=== PATIENT | female | born 1995 | race Caucasian/White ===

== ENCOUNTER 2018-11-26 17:31 | Outpatient (CLI) | payer BC ==
[~2018-11-26] VITALS: Ht 167.6 cm; Wt 89.4 kg
[~2018-11-26 17:31] MED LIST: PNV11TAB PO
[2018-11-26 17:58] VITALS: BP 115/57; PULSE 98; RESP 18; Ht 167.6 cm; Wt 89.4 kg
== END 2018-11-26 20:41 | disposition home or self-care (01) ==
LOC: OBT 17:31 → L-D 17:32 → OBT 20:41
PROVIDERS: ATTEND Obstetrics & Gynecology
DX: O36.8130 Decreased fetal movements, third trimester, not applicable or unspecified (principal); Z3A.37 37 weeks gestation of pregnancy
CPT/HCPCS: 76815; 76818; Z7500; G0463

== ENCOUNTER 2018-12-04 23:00 | Inpatient (IN) | payer BC ==
[~2018-12-04] VITALS: Ht 167.6 cm; Wt 89.4 kg
[2018-12-04 23:06] VITALS: Ht 167.6 cm; Wt 89.4 kg
[2018-12-04] MEDS: LACTATED RINGER'S 1,000 ML IV SCH (23:48)
[2018-12-05] MEDS ORDERED: DIPHENHYDRAMINE 50 MG INJ IV ONE
[2018-12-05] MEDS ORDERED: CEFAZOLIN 2 GM/50 ML (PMX) 50 ML IVPB SCH
[2018-12-05 00:36] VITALS: BP 126/75; PULSE 71; RESP 18
[2018-12-05] MEDS: LACTATED RINGER'S 1,000 ML IV SCH ×2 (00:45→06:47)
[2018-12-05] MEDS ORDERED: morphine SULFATE/PF (10 MG/10 ML) INJ ONE (10:32)
[2018-12-05] MEDS ORDERED: METOCLOPRAMIDE 10 MG INJ ONE (10:42)
[2018-12-05] MEDS ORDERED: ONDANSETRON 4 MG INJ ONE (10:42)
[2018-12-05] MEDS ORDERED: EPHEDrine 25 MG/5 ML SYG ONE (10:46)
[2018-12-05] MEDS ORDERED: PHENYLephrine 10 MG INJ ONE (10:46)
[2018-12-05] MEDS ORDERED: MIDAZOLAM 1 MG/ML 2 ML INJ ONE (11:05)
[2018-12-05] MEDS ORDERED: OXYTOCIN 10 UNIT INJ ONE (11:08)
[2018-12-05] MEDS ORDERED: LACTATED RINGER'S 1,000 ML IV ONE (11:20)
[2018-12-05] MEDS ORDERED: DIPHENHYDRAMINE 50 MG INJ IV PRN ×2 (11:30)
[2018-12-05] MEDS ORDERED: ZOLPIDEM 5 MG TAB PO PRN (11:30)
[2018-12-05] MEDS ORDERED: NALOXONE (0.4 MG/ML) INJ IV PRN (11:30)
[2018-12-05] MEDS ORDERED: HYDROmorphONE 0.5 MG/0.5 ML SYG IV PRN ×2 (11:30)
[2018-12-05] MEDS ORDERED: ONDANSETRON 4 MG INJ IV PRN (11:30)
[2018-12-05] MEDS ORDERED: MIDAZOLAM 1 MG/ML 2 ML INJ IV PRN (11:30)
[2018-12-05] MEDS ORDERED: NALBUPHINE HCL (10 MG/1 ML) INJ IV PRN (11:30)
[2018-12-05] MEDS ORDERED: MEPERIDINE 25 MG INJ IV PRN (11:30)
[2018-12-05] MEDS ORDERED: DIPHENHYDRAMINE 50 MG INJ ONE (11:32)
[2018-12-05] MEDS ORDERED: OXYTOCIN 30 UNITS/LR 1,000 ML IV ONE (11:48)
[2018-12-05 14:30] VITALS: BP 116/62; PULSE 86; RESP 17
[2018-12-05] MEDS ORDERED: OXYTOCIN 30 UNITS/LR 500 ML IV SCH ×2 (15:55)
[2018-12-05] MEDS: DEXTROSE 5%-LR 1,000 ML IV SCH ×2 (15:55→23:55)
[2018-12-05 16:00] VITALS: BP 100/57; PULSE 103; RESP 18
[2018-12-05] MEDS ORDERED: METHYLERGONOVINE 0.2 MG INJ IM PRN ×2 (16:00)
[2018-12-05] MEDS ORDERED: MAGNESIUM HYDROXIDE 30ML CUP PO PRN (16:00)
[2018-12-05] MEDS ORDERED: LANOLIN HPA 1 PKT TOP PRN (16:00)
[2018-12-05] MEDS ORDERED: CARBOPROST 250 MCG INJ IM PRN ×2 (16:00)
[2018-12-05] MEDS ORDERED: OXYTOCIN 30 UNITS/LR 500 ML IV PRN ×2 (16:00)
[2018-12-05] MEDS ORDERED: MISOPROSTOL 200 MCG TAB PR PRN ×2 (16:00)
[2018-12-05] MEDS ORDERED: METHYLERGONOVINE 0.2 MG TAB PO PRN (16:00)
[2018-12-05 19:45] VITALS: BP 109/59; PULSE 89; RESP 18
[2018-12-05] MEDS: SENNA/DOCUSATE NA (8.6MG/50MG) TAB PO SCH (22:31)
[2018-12-06 00:15] VITALS: BP 105/58; PULSE 78; RESP 18
[2018-12-06] MEDS: KETOROLAC 30 MG INJ IV PRN ×2 (00:16→06:25)
[2018-12-06] MEDS: LACTATED RINGER'S 1,000 ML IV SCH (01:30)
[2018-12-06 04:00] VITALS: BP 104/73; PULSE 73; RESP 20
[2018-12-06 08:45] VITALS: BP 106/58; PULSE 66; RESP 16
[2018-12-06] MEDS: SENNA/DOCUSATE NA (8.6MG/50MG) TAB PO SCH ×2 (08:55→21:26)
[2018-12-06] MEDS: DEXTROSE 5%-LR 1,000 ML IV SCH ×3 (08:58→23:55)
[2018-12-06] MEDS ORDERED: DIPHTH/TET/ACEL PERTUSS (ADULT) 0.5 ML VIAL IM* ONE (11:00)
[2018-12-06] MEDS: HYDROCODONE/APAP (5/325) TAB NGT PRN (11:41)
[2018-12-06] MEDS: HYDROCODONE/APAP (5/325) TAB GTB SCH ×2 (14:58→21:26)
[2018-12-06] MEDS: IBUPROFEN 800 MG TAB PO SCH ×2 (14:58→21:26)
[2018-12-06 16:25] VITALS: BP 107/66; RESP 18
[2018-12-06 20:15] VITALS: BP 111/60; PULSE 72; RESP 18
[2018-12-07] MEDS: HYDROCODONE/APAP (5/325) TAB NGT PRN ×2 (02:42→21:40)
[2018-12-07 03:37] VITALS: BP 91/57; PULSE 64; RESP 18
[2018-12-07] MEDS: HYDROCODONE/APAP (5/325) TAB GTB SCH ×3 (05:41→16:33)
[2018-12-07] MEDS: IBUPROFEN 800 MG TAB PO SCH ×3 (05:42→21:40)
[2018-12-07] MEDS: SENNA/DOCUSATE NA (8.6MG/50MG) TAB PO SCH ×2 (10:22→21:39)
[2018-12-07] MEDS ORDERED: DIPHTH/TET/ACEL PERTUSS (ADULT) 0.5 ML VIAL IM* ONE (12:00)
[2018-12-07 17:09] VITALS: BP 109/64; PULSE 70; RESP 18
[2018-12-07 19:40] VITALS: BP 114/74; PULSE 71; RESP 17
[2018-12-08 03:34] VITALS: BP 114/74; PULSE 67; RESP 18
[2018-12-08] MEDS: IBUPROFEN 800 MG TAB PO SCH (05:29)
[2018-12-08] MEDS: HYDROCODONE/APAP (5/325) TAB GTB SCH (05:30)
[2018-12-08 08:00] VITALS: BP 115/63; PULSE 67; RESP 18
[2018-12-08] MEDS: SENNA/DOCUSATE NA (8.6MG/50MG) TAB PO SCH (08:48)
[2018-12-08] MEDS ORDERED: DIPHTH/TET/ACEL PERTUSS (ADULT) 0.5 ML VIAL IM* ONE (09:00)
[2018-12-08] MEDS ORDERED: MEASLES,MUMPS,RUBELLA VACCINE INJ SC* ONE (09:00)
[2018-12-08] MEDS: HYDROCODONE/APAP (5/325) TAB NGT PRN (11:43)
== END 2018-12-08 13:54 | disposition home or self-care (01) | DRG 788 ==
LOC: OBT 23:00 → L-D 23:03 → OBT 23:40 → L-D 23:40 → PP1 12-05 14:39
PROVIDERS: ADMIT Obstetrics & Gynecology; ATTEND Obstetrics & Gynecology
PROC: 4A1HXCZ Monitoring of Products of Conception, Cardiac Rate, External Approach (ICD-10-PCS; 2018-12-05)
PROC: 10D00Z1 Extraction of Products of Conception, Low, Open Approach (ICD-10-PCS; principal; 2018-12-05 10:30)
PROC: 3E0234Z Introduction of Serum, Toxoid and Vaccine into Muscle, Percutaneous Approach (ICD-10-PCS; 2018-12-08)
DX: O36.63X0 Maternal care for excessive fetal growth, third trimester, not applicable or unspecified (principal); O99.824 Streptococcus B carrier state complicating childbirth; Z3A.39 39 weeks gestation of pregnancy; Z37.0 Single live birth; Z23 Encounter for immunization
CPT/HCPCS: 85025; 85610; 85730; 86592; 86850; 86900; 86901; 87340; 90715; 99464; G0463; J0690; J1170; J1200; J1885; J2210; J2250; J2274; J2370; J2405; J2590; J2765; J7120; J7121